=== PATIENT | female | born 2000 | race Caucasian/White ===

== ENCOUNTER 2020-12-13 13:50 | Emergency (ER) | payer BC ==
[~2020-12-13] VITALS: Ht 162.6 cm; Wt 72.6 kg
[~2020-12-13 13:50] MED LIST: CLARITIN10 MG; LANSOPRAZOLE30 MG PO; PREDNISONE 20 M20 MG; ZANTAC 7575 MG PO
[2020-12-13] MEDS ORDERED: ESCITALOPRA5 MG/5 ML PO (14:04)
[2020-12-13] MEDS ORDERED: DROSPIRENONE-E1 EAC1 PO (14:04)
[2020-12-13] MEDS ORDERED: ALLEGRA-D 24 H1 EACH PO (14:05)
[2020-12-13] MEDS ORDERED: MELOXICAM15 MG PO (14:05)
[2020-12-13 15:08] VITALS: BP 145/74
== END 2020-12-13 16:12 | disposition home or self-care (01) ==
LOC: M.ERS 13:50
DX: S93.402A Sprain of unspecified ligament of left ankle, initial encounter (principal); Z79.899 Other long term (current) drug therapy; X50.1XXA Overexertion from prolonged static or awkward postures, initial encounter; Y93.89 Activity, other specified; Y92.89 Other specified places as the place of occurrence of the external cause; Y99.8 Other external cause status